=== PATIENT | male | born 2000 | race Caucasian/White ===

== ENCOUNTER 2021-01-10 11:12 | Emergency (ER) | payer BC, MEDICAID, SELFPAY ==
--- NOTE | ~2021-01-10 | XR_ITS ---
EXAMINATION: XR KNEE, RIGHT CLINICAL INFORMATION: Pain and swelling status post patellar dislocation 2 weeks ago. COMPARISON: None TECHNIQUE: Four views of the right knee. FINDINGS: The medial and lateral compartment joint space is maintained normal. No loose bodies, fracture or bony erosive changes seen. There is a large suprapatellar joint effusion.] From previous injury. No fractures involving the patella. XR/XR knee RT 4V IMPRESSION: Large suprapatellar joint effusion likely from previous injury. There is no acute fracture or dislocation seen.
[2021-01-10 12:27] VITALS: BP 113/76; PULSE 77; RESP 18; TEMP 37.1; O2SAT 99; BMI 20.5
--- NOTE | 2021-01-10 13:34 | ED.LOWEXIN ---
HPI - Extremity Injury (Lower) General Chief Complaint: Extremity Injury, Lower Stated Complaint: R KNEE CAP INJ Time Seen by Provider: 01/10/21 13:26 Source: patient Mode of arrival: ambulatory Limitations: no limitations History of Present Illness HPI Narrative: 20-year-old healthy male presents the ED with right knee injury 2 weeks ago. Patient states he was playing volleyball when his right knee cap popped in and out of place. States he continued to feel discomfort and swelling. Went to [facility] 2 days after injury without evidence of fracture on x-ray. Patient states he continues to have discomfort and swelling so he felt he needed re-evaluation. No medications taken prior to arrival. No other injury since the initial event. Related Data Allergies Allergy/AdvReac Type Severity Reaction Status Date / Time No Known Allergies Allergy Verified 01/10/21 12:27 Review of Systems Review of Systems: Constitutional : No Weight loss, No Fever, No Chills, No Night Sweats, No Fatigue, No Malaise ENT/Mouth : No Hearing loss, No Ear Pain, No Nasal Congestion, No Sinus Pain, No Hoarseness, No sore throat, No Rhinorrhea, No Swallowing Difficulty Eyes: No Eye Pain, No Swelling, No Redness, No Foreign Body, No Discharge, No Vision Changes Cardiovascular : No Chest Pain, No SOB, No Dyspnea on Exertion, No Orthopnea, No Edema, No Palpitations Respiratory : No Cough, No Sputum, No Wheezing, No Smoke Exposure, No Dyspnea Gastrointestinal : No Nausea, No Vomiting, No Diarrhea, No Constipation, No abdominal Pain, No Hematochezia, No Melena Genitourinary : no irregular bleeding, No Dysuria, No Urinary Frequency, No Hematuria, No Urinary Incontinence, No Urgency, No Flank Pain, No Urinary Flow Changes, No Hesitancy Musculoskeletal : + joint pain, No Myalgias, + Joint Swelling Skin : No Skin Lesions, No rash Neuro : No Weakness, No Numbness, No Paresthesias, No Loss of Consciousness, No Dizziness, No Headache Psych : No Anxiety/Panic, No Depression, No SI/HI/AH/VH, No Social Issues, Heme/Lymph: No Bruising, No Bleeding,No Lymphadenopathy Endocrine : No Polyuria, No Polydipsia, No Temperature Intolerance PMF Past Medical History Attestation statement: The following information was validated with the patient. Source: old records reviewed and nursing notes reviewed Medical History (Updated 01/10/21 @ 14:41 by EDGAR Francois) Patient denies medical problems Social History Social History Advance Directives: Yes Advance Directives Information Provided: Yes Advance Directives on File: No Physical Exam Vital Signs: Vital Signs: Last Vital Signs Temp 98.7 F 01/10/21 12:27 Pulse 77 01/10/21 12:27 Resp 18 01/10/21 12:27 BP 113/76 01/10/21 12:27 Pulse Ox 99 01/10/21 12:27 Body Mass Index 20.5 vital signs have been reviewed as normal and appeared to be correct. Blood pressure normal. Heart rate normal. Respiration rate normal. Temperature normal. Oxygen saturation normal. Appearance: Alert. Oriented X3. No acute distress. Head: Normal external exam. Normocephalic. Atraumatic. No Antoine signs noted. No raccoon eyes noted Eyes: Conjunctiva and sclera normal. ENT: EAC normal. Moist mucous membranes. No drooling noted. No muffled voice noted. Neck: Normal inspection. Neck supple. FROM. No meningeal signs. CVS: Pulses normal throughout. Respiratory: No respiratory distress. Painless inspiration. No accessory muscle usage noted Abdomen: No visible injury noted. Back: Full range of motion noted. Skin: Skin warm and dry. Normal skin color. Normal skin turgor. Extremities: Extremities exhibit normal range of motion. Patient with obvious edema to right knee no significant pain to palpation patella appears intact distal pulses good capillary refill no posterior calf tenderness. Neuro: Oriented X 3. No motor deficit. No sensory deficit. Course Reevaluation(s) Reevaluation #1: Patient's x-ray without evidence of fracture or dislocation. Will discharge home with orthopedic referral and return precautions. MDM - Extremity Injury (Lower) MDM Narrative Medical decision making narrative: Patient's vital signs are stable and he is afebrile. Patient presenting to the emergency department with right knee injury and continued discomfort will repeat x-ray to ensure the absence of fracture dislocation. Given continued swelling with history of patellar dislocation feel there may be internal knee injury will refer to Orthopedics pending normal x-ray will continue to monitor. No acute concern for DVT. Discharge Plan Discharge Clinical Impression: Effusion, right knee Patient Disposition: Home, Self-Care Instructions: Swollen Knee Joint (ED) Additional Instructions: You were seen in the emergency department today for continued right knee pain and swelling a repeat x-ray was done and was normal there is a large fluid collection on the right knee which is likely inflammatory secondary to a potential internal knee injury. It is important that if this continues to follow up with Orthopedics. A referral was made today. Referrals: Homero Bailon MD [Physician] - 1 week Interventions: ED Discharge Assessment Last Done: 01/10/21 15:00 Discharge Date/Time: 01/10/21 15:00 Print Language: Greek
== END 2021-01-10 15:00 | disposition home or self-care (01) ==
PROVIDERS: Emergency Provider Emergency Medicine
DX: M25.461 Effusion, right knee (principal)
CPT/HCPCS: 73564; 99283

== ENCOUNTER 2021-01-14 08:01 | Outpatient (REF) | payer BC, MEDICAID, SELFPAY ==
--- NOTE | ~2021-01-14 | XR_ITS ---
EXAMINATION: XR KNEE, RIGHT CLINICAL INFORMATION: Pain and swelling right knee. Patellar dislocation several weeks ago. COMPARISON: Radiographs right knee 01/10/2021 TECHNIQUE: Axial view patella there is performed. FINDINGS: There is mild lateralization of the patella. There is a punctate ossification adjacent to the medial side of the patella. Otherwise, no fracture or destructive process. Normal bony mineralization. XR/XR knee RT 2V IMPRESSION: Mild lateralization patella. Punctate ossification adjacent to medial side patella.
== END 2021-01-14 08:02 | disposition home or self-care (01) ==
LOC: HO.HOSX 08:01
PROVIDERS: Visit Provider Physician Assistant
DX: M22.01 Recurrent dislocation of patella, right knee (principal)
CPT/HCPCS: 20610; 73502; 73560